=== PATIENT | male | born 1985 | race Caucasian/White ===

== ENCOUNTER 2022-11-15 04:15 | Emergency (ER) | payer MEDICAID, OTHER ==
[~2022-11-15] VITALS: Ht 165.1 cm; Wt 75.0 kg
[~2022-11-15 04:15] MED LIST: CIPR500T89 PO; FLAG500T PO; IMIT100T PO; LITH600C PO; ONDA-227 PO; PERC10TA PO; PERC7.5T12 PO; PRIL20CA PO; REGL10TA6 PO; SING4GRA PO; VENTAER IN
[2022-11-15 04:47] VITALS: BP 147/95; TEMP 98.1; O2SAT 98
== END 2022-11-15 06:30 | disposition home or self-care (01) ==
LOC: M ED 04:15
DX: F43.9 Reaction to severe stress, unspecified (principal); F90.9 Attention-deficit hyperactivity disorder, unspecified type; G43.909 Migraine, unspecified, not intractable, without status migrainosus; F31.9 Bipolar disorder, unspecified; Z88.6 Allergy status to analgesic agent; Z91.030 Bee allergy status; Z79.899 Other long term (current) drug therapy